=== PATIENT | female | born 1970 | race Caucasian/White ===

== ENCOUNTER 2018-04-16 10:52 | Observation (INO) | payer BC ==
--- NOTE | 2018-04-14 15:07 | Diagnostic Imaging Report ---
EXAMINATION: PA and lateral views of the chest. COMPARISON: None CLINICAL HISTORY: Preoperative evaluation for hysterectomy DISCUSSION: Lines/tubes: None. Lungs: The lungs are well inflated and clear. No pneumonia or pulmonary edema. Pleura: No pleural effusion or pneumothorax. Heart and mediastinum: The cardiomediastinal silhouette is normal. Bones and soft tissues: No acute bony abnormalities. IMPRESSION: No acute cardiopulmonary abnormalities. Signed by: Dr. Bj Powell M.D. on 04/14/2018 3:04 PM
[2018-04-14 15:26] LABS: BASOPHILS % 0.3 % (0.0-1.0); HEMOGLOBIN 11.5 g/dL (12.0-16.0); LYMPHOCYTES # (AUTO) 0.7 (1.0-3.2); LYMPHOCYTES % 7.9 % (18.0-39.1); MEAN CORPUSCULAR HEMOGLOBIN 26.2 pg (28-32); MEAN CORPUSCULAR HGB CONC 31.1 g/dL (31-35); MEAN CORPUSCULAR VOLUME 84.3 fL (81-99); MONOCYTES # (AUTO) 0.1 (0.2-0.8); MONOCYTES % 1.5 % (4.4-11.3); NEUTROPHILS # (AUTO) 8.5 (2.1-6.9); PLATELET COUNT 329 x10e3/uL (140-360); RED BLOOD COUNT 4.39 x10e6/uL (3.6-5.1); RED CELL DISTRIBUTION WIDTH 21.8 % (11.7-14.4)
[2018-04-14 15:28] LABS: BILIRUBIN,URINE NEGATIVE (NEGATIVE); CLARITY,URINE SL CLOUDY (CLEAR); COLOR,URINE YELLOW (YELLOW); KETONES,URINE NEGATIVE (NEGATIVE); LEUKOCYTE ESTERASE ,URINE NEGATIVE (NEGATIVE); NITRITE,URINE NEGATIVE (NEGATIVE); PROTEIN,URINE DIPSTICK NEGATIVE (NEGATIVE); URINE UROBILINOGEN 0.2 mg/dL (0.2 - 1)
[2018-04-14 15:46] LABS: ALANINE AMINOTRANSFERASE 23 IU/L (0-55); ALBUMIN 3.5 g/dL (3.5-5.0); ALBUMIN/GLOBULIN RATIO 1.2 (0.8-2.0); ALKALINE PHOSPHATASE 47 IU/L (40-150); ANION GAP 15.5 mmol/L (8-16); BLOOD UREA NITROGEN 15 mg/dL (7-26); BUN/CREATININE RATIO 21 (6-25); CALCIUM 9.4 mg/dL (8.4-10.2); CARBON DIOXIDE 21 mmol/L (22-29); CHLORIDE 104 mmol/L (98-107); CREATININE, SERUM 0.71 mg/dL (0.57-1.11); EST GLOMERULAR FILTRATION RATE > 60 ML/MIN (60-); GLUCOSE 109 mg/dL (74-118); POTASSIUM 4.5 mmol/L (3.5-5.1); SODIUM 136 mmol/L (136-145)
[~2018-04-16] VITALS: Ht 165.1 cm; Wt 79.8 kg
[~2018-04-16 10:52] MED LIST: ATENOLOL50 MG; FOLIC ACID1 MG PO; GABAPENTIN400 MG PO; HUMIRA40 MG/0.1; LASIX40 MG PO; LEFLUNOMIDE20 MG; MOBIC15 MG; MORPHINE ER PO; NORCO 10-325 T1 EACH; OMEPRAZOLE40 MG; PREDNISONE10 MG PO; VITAMIN D1000 UNI1 PO
--- OUTSIDE RECORDS SUMMARY | 2018-04-16 10:54 | XMS REPORT | Clinical Summary ---
Author Author [facility] Address Unknown Phone Unavailable Care Team Providers Care Hand Candy Molder Name Role Phone Saulo Vazquez MD PCP Allergies No Known Allergies Medications End Date Status Medication Sig Dispensed Refills Start Date Active zolpidem (AMBIEN) 10 mg Take 10 mg by 0 tablet mouth. 8 Active rosuvastatin (CRESTOR) 5 Take 5 mg by 0 MG tablet mouth daily. 8 Active predniSONE (DELTASONE) 10 Take 10 mg by 0 08/19/ mg tablet mouth 3 8 (three) times a day as needed. Active omeprazole (PriLOSEC) 40 Take 30 mg by 0 MG capsule mouth daily. 8 Active meloxicam (MOBIC) 15 mg Take 15 mg by 0 tablet mouth daily. 8 Active leflunomide (ARAVA) 20 MG Take 20 mg by 0 tablet mouth daily. 8 Active HYDROcodone-acetaminophen Take 1 tablet 0 (NORCO) 10-325 mg per by mouth 2 8 tablet (two) times a day as needed. Active hydroCHLOROthiazide Take 25 mg by 0 (HYDRODIURIL) 25 MG mouth daily. 8 tablet Active gabapentin (NEURONTIN) Take 400 mg 0 400 mg capsule by mouth 8 daily. Active folic acid (FOLVITE) 1 MG Take 1 mg by 0 tablet mouth daily. 8 Active VITAMIN D2 50,000 unit Take 1 0 capsule capsule by 8 mouth every 7 days. Active atenolol (TENORMIN) 25 MG Take 25 mg by 0 tablet mouth 3 8 (three) times a day as needed. Active atenolol (TENORMIN) 50 MG Take 50 mg by 0 tablet mouth daily. 8 Active HUMIRA PEN 40 mg/0.8 mL Inject 1 Dose 0 pen injector kit into the 8 injection pen kit shoulder, thigh, or buttocks take as directed. Every ten days 10/14/2017 Discontinued metaxalone (SKELAXIN) 800 Take 800 mg 0 MG tablet by mouth 8 daily as needed. Active Problems Problem Noted Date Back pain at L4-L5 level 10/13/2017 Encounters Care Team Description Date Type Specialty Michael Schwartz MD 10/13/2017 Anesthesia General Surgery Event Fabiola Tran MD REMOVAL OF SPINAL CORD STIMULATOR GENERATOR 10/13/2017 Surgery General Surgery Fabiola Tran MD Back pain at L4-L5 level (Primary Dx) 10/13/2017 Hospital General Surgery - Encounter 10/14/2017 Fabiola Tran MD Preop testing (Primary Dx) 10/09/2017 Pre-Admit Pre-Admission Testing Testing Appointment Fabiola Tran MD Preop testing (Primary Dx) 09/29/2017 Pre-Admit Pre-Admission Testing Testing Appointment Fabiola Tran MD 09/29/2017 Hospital Radiology Encounter Fabiola Tran MD 09/29/2017 Hospital Radiology Encounter Fabiola Tran MD 09/29/2017 Hospital Radiology Encounter after 04/15/2017 Family History Medical History Relation Name Comments Cerebral palsy Daughter Seizures Daughter Diabetes Mother Heart disease Mother Relation Name Status Comments Daughter Alive Mother Social History Date Tobacco Use Types Packs/Day Years Used Quit: 08/29/1993 Former Smoker Cigarettes 0.25 4 Smokeless Tobacco: Never Used Alcohol Use Drinks/Week oz/Week Comments Yes less than one per week Sex Assigned at Date Recorded Not on file Industry Job Start Date Occupation Not on file Not on file Not on file Travel End Travel History Travel Start No recent travel history available. Last Filed Vital Signs Time Taken Vital Sign Reading 10/14/2017 5:37 PM CDT Blood Pressure 108/58 10/14/2017 5:37 PM CDT Pulse 68 10/14/2017 5:37 PM CDT Temperature 36.7 C (98 F) 10/14/2017 5:37 PM CDT Respiratory Rate 18 10/14/2017 5:37 PM CDT Oxygen Saturation 94% - Inhaled Oxygen - Concentration 10/13/2017 6:15 AM CDT Weight 80.7 kg (177 lb 14.4 oz) 10/13/2017 6:15 AM CDT Height 165.1 cm (5' 5") 10/13/2017 6:15 AM CDT Body Mass Index 29.6 Plan of Treatment Health Maintenance Due Date Last Done Comments CERVICAL CANCER SCREENING 1992 INFLUENZA VACCINE 09/30/2017 Procedures Comments Procedure Name Priority Date/Time Associated Diagnosis XR LUMBAR SPINE 1 VW Routine 10/13/2017 9:45 AM CDT OR [place] > 1 HOUR Routine 10/13/2017 9:05 AM CDT SURGICAL PATHOLOGY Routine 10/13/2017 REQUEST 9:00 AM CDT AL AN ELECTIVE Routine 10/13/2017 ENDOTRACHEAL AIRWAY 8:12 AM CDT Procedure Note - Ameya Nieves - 10/13/2017 8:12 AM CDT Airway Date/Time: 10/13/2017 7:38 AM Performed by: AMEYA NIEVES Authorized by: MICHAEL SCHWARTZ Location: OR Urgency: Elective Difficult Airway: No Anesthesio logist: MICHAEL SCHWARTZ Resident/C RNA/AA: AMEYA NIEVES Performed by: resident/C RNA/AA Preoxygena nereida with 100% O2: Yes Mask Ventilatio n: Easy mask Final Airway Type: Endotrache al airway Final Endotrache al Airway: ETT Cuffed: Yes Technique Used: Direct laryngosco py Devices/Me thods Used in Placement: Intubatin g stylet Insertion Site: Oral Blade Type: Laryngosco pe Blade/Vide olaryngosc ope Blade Size: 2 ETT Size (mm): 7.0 Cuff at minimum occlusion pressure: Yes Measured from: Teeth ETT to Teeth (cm): 19 Placement Verified by: CO2 detection and direct visualizat ion Laryngosco pic view: Grade I - full view of glottis Rapid Sequence Induction (RSI): No Modified RSI: No Number of Attempts at Approach: 1 On scissoring mouth open, upper and lower dentures came off (patient did not admit to having previously ), atraumatic intubation INSERTION, PERIPHERAL 10/13/2017 STATUS POST LUMBAR FUSION NERVE STIMULATOR, 7:15 AM CDT PERCUTANEOUS, FOR TRIAL Special Needs C-ARM, LAMINECTOM Y TRAY HCG QUALITATIVE, URINE STAT 10/13/2017 SCREEN 6:10 AM CDT ZZESTIMATED GFR Routine 10/09/2017 7:37 AM CDT BASIC METABOLIC PANEL Routine 10/09/2017 Preop testing 7:37 AM CDT TYPE AND SCREEN Routine 10/09/2017 Preop testing 7:37 AM CDT XR THORACIC SPINE 2 VW Routine 09/29/2017 Preop testing 2:30 PM CDT XR LUMBAR SPINE 2 OR 3 VW Routine 09/29/2017 Preop testing 2:25 PM CDT XR CHEST 2 VW Routine 09/29/2017 Preop testing 2:25 PM CDT PROTHROMBIN TIME WITH INR Routine 09/29/2017 Preop testing 1:15 PM CDT PARTIAL THROMBOPLASTIN Routine 09/29/2017 Preop testing TIME (PTT) 1:15 PM CDT HC COMPLETE BLD COUNT Routine 09/29/2017 Preop testing W/AUTO DIFF 1:15 PM CDT ECG 12-LEAD Routine 09/29/2017 Preop testing 1:13 PM CDT URINALYSIS, AUTOMATED Routine 09/29/2017 Preop testing WITH MICROSCOPY 11:25 AM CDT after 04/15/2017 Results * XR Lumbar Spine 1 Vw (10/13/2017 9:45 AM CDT) Narrative Performed At EXAMINATION: XR LUMBAR SPINE 1 VW [facility] CLINICAL HISTORY: Spinal cord simulator removal COMPARISON:Chest, thoracic, lumbar radiographs obtained on 09/29/2017 IMPRESSION: Interval removal of a spinal cord stimulator leads without retained lead or foreign body identified. Cholecystectomy clips. [id number] Procedure Note Hm Interface, Radiology Results Incoming - 10/13/2017 11:39 AM CDT EXAMINATION: XR LUMBAR SPINE 1 VW CLINICAL HISTORY: Spinal cord simulator removal COMPARISON: Chest, thoracic, lumbar radiographs obtained on 09/29/2017 IMPRESSION: Interval removal of a spinal cord stimulator leads without retained lead or foreign body identified. Cholecystectomy clips. [id number] Performing Organization Address [facility] Phone Number [facility] [address] [place] [address] * OR [place] > I Hour (10/13/2017 9:05 AM CDT) Narrative Performed At EXAMINATION:OR FL 1 HOUR HM [facility] C-arm fluoroscopy was requested in OR.FLUORO TIME 0:41 IMPRESSION: Separate operative report will be issued by the physician performing the procedure. [id number] Procedure Note Hm Interface, Radiology Results Incoming - 10/13/2017 10:10 AM CDT EXAMINATION: OR FL 1 HOUR C-arm fluoroscopy was requested in OR. FLUORO TIME 0:41 IMPRESSION: Separate operative report will be issued by the physician performing the procedure. [id number] Performing Organization Address [facility] [place] Phone Number [facility] [address] [place] [address] * Surgical pathology request (10/13/2017 9:00 AM CDT) [facility] DEPARTMENT OF PATHOLOGY AND GENOMIC MEDICINE Surgical pathology report See link below for PDF Lab [facility] DEPARTMENT OF Report PATHOLOGY AND GENOMIC MEDICINE Result status This is Final Report to [facility] DEPARTMENT OF [id number] PATHOLOGY AND GENOMIC MEDICINE Performing Organization Address [facility] [place] Phone Number [address] [place] [address] PATHOLOGY AND GENOMIC MEDICINE * hCG qualitative, urine screen (10/13/2017 6:10 AM CDT) hCG qualitative, urine Negative Negative [facility] DEPARTMENT OF Comment: PATHOLOGY AND The manufacturers stated GENOMIC MEDICINE sensitivity of HcG test for serum is >/=10 mIU/ml and urine is >/=20mIU/ml. LOT # [id number] EXP : 03/2019 Specimen Urine Performing Organization Address [facility] [place] Phone Number [address] [place] [address] PATHOLOGY AND GENOMIC MEDICINE * Estimated GFR (10/09/2017 7:37 AM CDT) GFR Non Af Amer 77 mL/min/1.[address] [facility] DEPARTMENT OF PATHOLOGY AND GENOMIC MEDICINE GFR Af Amer >90 mL/min/1.[address] [facility] DEPARTMENT OF Comment: PATHOLOGY AND Chronic kidney disease: <60 GENOMIC MEDICINE mL/min/1.73m2 Kidney failure: <15 mL/min/1.73m2 The estimated GFR is calculated from the IDMS-traceable Modification of Diet in Renal Disease Equation. The accuracy of the calculation is poor when the creatinine is normal. Calculated values >90 mL/min/1.73m2 are not reported. This equation has not been validated in children (<18 years), women, the elderly (>70 years), or ethnic groups other than Caucasians and Americans. Specimen Plasma specimen Performing Organization Address [facility] Phone Number [address] [place] [address] [facility] * Type and screen (10/09/2017 7:37 AM CDT) ABO grouping O [facility] DEPARTMENT OF PATHOLOGY AND GENOMIC MEDICINE Rh type POS [facility] DEPARTMENT PATHOLOGY AND GENOMIC MEDICINE Antibody screen NEG [facility] DEPARTMENT OF PATHOLOGY AND GENOMIC [facility] Specimen Blood Performing Organization Address [facility] Phone Number [address] [place] [address] [facility] * Basic metabolic panel (10/09/2017 7:37 AM CDT) Sodium 139 135 - 148 mEq/L [facility] DEPARTMENT OF PATHOLOGY AND GENOMIC MEDICINE Potassium 3.5 3.5 - 5.0 mEq/L [facility] DEPARTMENT OF PATHOLOGY AND GENOMIC MEDICINE Chloride 98 98 - 112 mEq/L [facility] DEPARTMENT OF PATHOLOGY AND GENOMIC MEDICINE CO2 31 24 - 31 mEq/L [facility] DEPARTMENT OF PATHOLOGY AND GENOMIC MEDICINE Anion gap 10@ANIO 7 - 15 mEq/L [facility] DEPARTMENT OF PATHOLOGY AND GENOMIC MEDICINE BUN 15 6 - 20 mg/dL [facility] DEPARTMENT OF PATHOLOGY AND GENOMIC MEDICINE Creatinine 0.8 0.5 - 0.9 mg/dL [facility] DEPARTMENT OF PATHOLOGY AND GENOMIC MEDICINE Glucose 87 65 - 99 mg/dL [facility] DEPARTMENT OF PATHOLOGY AND GENOMIC MEDICINE Calcium 9.5 8.3 - 10.2 mg/dL [facility] DEPARTMENT OF PATHOLOGY AND [employer] MEDICINE Specimen Plasma specimen Performing Organization Address [facility] Phone Number [address] [place] [address] PATHOLOGY AND GENOMIC MEDICINE * XR Thoracic Spine 2 Vw (09/29/2017 2:30 PM CDT) Narrative Performed At EXAMINATION:XR THORACIC SPINE 2 VW [facility] CLINICAL HISTORY:Z01.818 Encounter for other preprocedural examination, T-spine fusionfollow up, preop- removal of spinal cord stimulator COMPARISON:None. FINDINGS: The bones are osteopenic. There appears to be wedging at T12-L1. The intraspinal stimulator appears to enter the canal between T11 and T12 dorsally as best can be determined by this technique. IMPRESSION: No additional findings of significance are identified. IMPRESSION: 1. Intraspinal stimulator as noted. 2. Diffuse osteopenia [id number] Procedure Note Interface, Radiology Results Incoming - 09/29/2017 6:17 PM CDT EXAMINATION: XR THORACIC SPINE 2 VW CLINICAL HISTORY: Z01.818 Encounter for other preprocedural examination, T- spine fusion follow up, preop- removal of spinal cord stimulator COMPARISON: None. FINDINGS: The bones are osteopenic. There appears to be wedging at T12-L1. The intraspinal stimulator appears to enter the canal between T11 and T12 dorsally as best can be determined by this technique. IMPRESSION: No additional findings of significance are identified. IMPRESSION: 1. Intraspinal stimulator as noted. 2. Diffuse osteopenia [id number] Performing Organization Address City/State/Zipcode Phone Number [facility] [address] [place] [address] * XR Lumbar Spine 2 Or 3 Vw (09/29/2017 2:25 PM CDT) Narrative Performed At EXAMINATION:XR LUMBAR SPINE 2 OR 3 VW [facility] CLINICAL HISTORY:Z01.818 Encounter for other preprocedural examination, L S-spine fusionfollow up, preop- removal of spinal cord stimulator generator COMPARISON:None. FINDINGS: The bones are well-mineralized and appear intact. An intraspinal stimulator is noted entering the canal at the T12 T11 level as best can be estimated. An additional electrode overlies the upper sacrum. Vertebral disc spaces are preserved. Facet hypertrophy at the lower 3 levels is present. IMPRESSION: Spinal stimulator as noted. [id number] Procedure Note Interface, Radiology Results Incoming - 09/29/2017 4:03 PM CDT EXAMINATION: XR LUMBAR SPINE 2 OR 3 VW CLINICAL HISTORY: Z01.818 Encounter for other preprocedural examination, L S- spine fusion follow up, preop- removal of spinal cord stimulator generator COMPARISON: None. FINDINGS: The bones are well-mineralized and appear intact. An intraspinal stimulator is noted entering the canal at the T12 T11 level as best can be estimated. An additional electrode overlies the upper sacrum. Vertebral disc spaces are preserved. Facet hypertrophy at the lower 3 levels is present. IMPRESSION: Spinal stimulator as noted. [id number] Performing Organization Address [facility] [place] Phone Number [facility] [address] [place] [address] * XR Chest 2 Vw (09/29/2017 2:25 PM CDT) Narrative Performed At EXAMINATION:[facility]:Z01.818 Encounter for other preprocedural examination, preop COMPARISON:February 19, 2007 FINDINGS: The heart size appears normal. The mediastinum is unremarkable. A intraspinal nerve stimulator is noted, its projects within the lower thoracic spinal canal. IMPRESSION: No acute cardiopulmonary abnormality is identified. [id number] Procedure Note Hm Interface, Radiology Results Incoming - 09/29/2017 3:55 PM CDT EXAMINATION: XR CHEST 2 VW CLINICAL HISTORY: Z01.818 Encounter for other preprocedural examination, preop COMPARISON: February 19, 2007 FINDINGS: The heart size appears normal. The mediastinum is unremarkable. A intraspinal nerve stimulator is noted, its projects within the lower thoracic spinal canal. IMPRESSION: No acute cardiopulmonary abnormality is identified. [id number] Performing Organization Address [facility] [place] Phone Number [facility] [address] [place] [address] * Partial thromboplastin time, activated (09/29/2017 1:15 PM CDT) PTT 33.8 23.0 - 36.[address] [facility] DEPARTMENT OF Comment: PATHOLOGY AND PTT therapeutic range for [employer] MEDICINE unfractionated heparin is 61.0-112.0 seconds which corresponds to Anti-Xa 0.3-0.7 U/ml. Specimen Blood Performing Organization Address [facility] Phone Number [facility] DEPARTMENT OF [address] [place] [address] [place] [address] PATHOLOGY AND GENOMIC MEDICINE * Prothrombin time with INR (09/29/2017 1:15 PM CDT) Prothrombin time 12.5 12.0 - 15.[address] [facility] DEPARTMENT OF PATHOLOGY AND GENOMIC MEDICINE INR 0.[address] [facility] DEPARTMENT OF Comment: PATHOLOGY AND The International Normalized GENOMIC MEDICINE Ratio (INR) is a therapeutic monitoring tool for patients who are stable on oral anticoagulant therapy. An INR of 2.0-3.0 is suggested for deep vein thrombosis/pulmonary embolism. Specimen Blood Performing Organization Address City/State/Zipcode Phone Number [facility] [place] [address] [place] [address] PATHOLOGY AND GENOMIC MEDICINE * CBC with platelet and differential (09/29/2017 1:15 PM CDT) WBC 5.88 4.50 - 11.00 k/uL [facility] DEPARTMENT OF PATHOLOGY AND GENOMIC MEDICINE RBC 4.24 4.20 - 5.50 m/uL [facility] DEPARTMENT OF PATHOLOGY AND GENOMIC MEDICINE HGB 11.7 (L) 12.0 - 16.0 g/dL [facility] DEPARTMENT OF PATHOLOGY AND GENOMIC MEDICINE HCT 37.6 37.0 - 47.0 % [facility] DEPARTMENT OF PATHOLOGY AND GENOMIC MEDICINE MCV 88.7 82.0 - 100.[address] [facility] DEPARTMENT OF PATHOLOGY AND GENOMIC MEDICINE MCH 27.6 27.0 - 34.[address] [facility] DEPARTMENT OF PATHOLOGY AND GENOMIC MEDICINE MCHC 31.1 31.0 - 37.0 g/dL [facility] DEPARTMENT OF PATHOLOGY AND GENOMIC MEDICINE RDW - SD 49.1 37.0 - 55.[address] [facility] DEPARTMENT OF PATHOLOGY AND GENOMIC MEDICINE MPV 10.5 8.8 - 13.[address] [facility] DEPARTMENT OF PATHOLOGY AND GENOMIC MEDICINE Platelet count 339 150 - 400 k/uL [facility] DEPARTMENT OF PATHOLOGY AND GENOMIC MEDICINE Nucleated RBC 0.00 /[address] [facility] DEPARTMENT OF PATHOLOGY AND GENOMIC MEDICINE Neutrophils 40.3 39.0 - 69.0 % [facility] DEPARTMENT OF PATHOLOGY AND GENOMIC MEDICINE Lymphocytes 39.3 25.0 - 45.0 % [facility] DEPARTMENT OF PATHOLOGY AND GENOMIC MEDICINE Monocytes 15.8 (H) 0.0 - 10.0 % [facility] DEPARTMENT OF PATHOLOGY AND GENOMIC MEDICINE Eosinophils 3.4 0.0 - 5.0 % [facility] DEPARTMENT OF PATHOLOGY AND GENOMIC MEDICINE Basophils 1.0 0.0 - 1.0 % [facility] DEPARTMENT OF PATHOLOGY AND GENOMIC MEDICINE Specimen Blood Performing Organization Address City/[facility]/Zipcode Phone Number [place] [phone] [place] [address] PATHOLOGY AND GENOMIC MEDICINE * ECG 12 lead (09/29/2017 1:13 PM CDT) Ventricular rate 61 [facility] Atrial rate 61 [facility] AL interval 122 [facility] QRSD interval 70 [facility] QT interval 384 [facility] QTC interval 386 [facility] P axis 1 66 [facility] QRS axis 1 58 [facility] T wave axis 43 [facility] EKG impression Normal sinus rhythm-Normal [facility] MUSE ECG-In automated comparison with ECG of 04-APR-2011 21:33,-No significant change was found- Performing Organization Address City/[facility] Phone Number [facility] [address] [place] [address] * Urinalysis, automated with microscopy (09/29/2017 11:25 AM CDT) Color, UA Straw [facility] DEPARTMENT OF PATHOLOGY AND GENOMIC MEDICINE Appearance, UA Clear [facility] DEPARTMENT OF PATHOLOGY AND GENOMIC MEDICINE Specific gravity, UA 1.004 1.001 - 1.[address] [facility] DEPARTMENT OF PATHOLOGY AND GENOMIC MEDICINE pH, UA 5.0 5.0 - 8.[address] [facility] DEPARTMENT OF PATHOLOGY AND GENOMIC MEDICINE Protein, UA Negative Negative [facility] DEPARTMENT OF PATHOLOGY AND GENOMIC MEDICINE Glucose, UA Negative Negative [facility] DEPARTMENT OF PATHOLOGY AND GENOMIC MEDICINE Ketones, UA Negative Negative [facility] DEPARTMENT OF PATHOLOGY AND GENOMIC MEDICINE Bilirubin, UA Negative Negative [facility] DEPARTMENT OF PATHOLOGY AND GENOMIC MEDICINE Blood, UA Negative Negative [facility] DEPARTMENT OF PATHOLOGY AND GENOMIC MEDICINE Nitrite, UA Negative Negative [facility] DEPARTMENT OF PATHOLOGY AND GENOMIC MEDICINE Urobilinogen, UA Negative <2.[address] [facility] DEPARTMENT OF PATHOLOGY AND GENOMIC MEDICINE Leukocyte esterase, UA Negative Negative [facility] DEPARTMENT OF PATHOLOGY AND GENOMIC MEDICINE Epithelial cells, UA Many /HPF [facility] DEPARTMENT OF PATHOLOGY AND GENOMIC MEDICINE Round epithelial cells, Few 0 - 1 /HPF [facility] DEPARTMENT OF PATHOLOGY AND GENOMIC MEDICINE WBC, UA 0-5 0 - 4 /HPF [facility] DEPARTMENT OF PATHOLOGY AND GENOMIC MEDICINE RBC, UA 0-5 0 - 5 /HPF [facility] DEPARTMENT OF PATHOLOGY AND GENOMIC MEDICINE Bacteria, UA Few None seen [facility] DEPARTMENT OF PATHOLOGY AND GENOMIC MEDICINE Yeast, UA None seen [facility] DEPARTMENT OF PATHOLOGY AND GENOMIC MEDICINE Yeast with pseudohyphae, None seen [facility] DEPARTMENT OF UA PATHOLOGY AND GENOMIC MEDICINE Specimen Urine Performing Organization Address City/State/Zipcode Phone Number [facility] DEPARTMENT [address] [place] [address] PATHOLOGY AND GENOMIC MEDICINE after 04/15/2017 Insurance Payer Benefit Subscriber ID Type Phone Address Plan / Group [facility] xxxxxxxxxxx PPO [employer] Advance Directives Patient has advance care planning documents on file. For more information, jessica henley contact: Lance Morgan [address] [place] [address]
--- OUTSIDE RECORDS SUMMARY | 2018-04-16 10:55 | XMS REPORT ---
Author Author [facility] Address Unknown Phone Unavailable Care Team Providers Care Cryptographic Machine Operator Name Role Phone JOANA FOWLER Unavailable Unavailable Problems This patient has no known problems. Allergies, Adverse Reactions, Alerts This patient has no known allergies or adverse reactions. Medications This patient has no known medications. Results Test Description Test Time Test Comments Text Results Atomic Results Result Comments CHEST 2 VIEWS 2018-04-14 15:02:00 [place] [address] Patient Name: HAILEE BURT MR #: [id number] : 1970 Age/Sex: 48/F Req #: [id number] Adm Physician: Ordered by: JOANA FOWLER MD Report #: [id number] Location: OR Room/Bed: Procedure: [id number] DX/CHEST 2 VIEWS Exam Date: 04/14/18 Exam Time: 1440 REPORT STATUS: Signed EXAMINATION: PA and lateral views of the chest. COMPARISON: None CLINICAL HISTORY: Preoperative evaluation for hysterectomy DISCUSSION: Lines/tubes: None. Lungs: The lungs are well inflated and clear. No pneumonia or pulmonary edema. Pleura: No pleural effusion or pneumothorax. Heart and mediastinum: The cardiomediastinal silhouette is normal. Bones and soft tissues: No acute bony abnormalities. IMPRESSION: No acute cardiopulmonary abnormalities. Signed by: Dr. Isaiah Mays M.D. on 04/14/2018 3:04 PM Dictated By: ISAIAH MAYS MD [id number] Transcribed By: CHASIDY on 04/14/18 1504 COPY TO: JOANA FOWLER MD
--- OUTSIDE RECORDS SUMMARY | 2018-04-16 10:55 | XMS REPORT ---
Author Author Michael Matthew Organization [employer] Address Unknown Phone Unavailable Care Team Providers Care Patient Placement Coordinator Name Role Phone Michael Matthew CP Unavailable Allergies No Known Allergies Problems Problem Type Condition Code Onset Dates Condition Status Assessment Wrist pain, right M25.531 Active Assessment Rheumatoid arthritis of multiple sites with negative rheumatoid factor M06.09 Active Assessment Wrist pain, left M25.532 Active Problem Rheumatoid arthritis of multiple sites with negative rheumatoid factor M06.09 Active Problem Polyarthralgia M25.50 Active Problem Vitamin D deficiency E55.9 Active Problem Polyarthritis, unspecified M13.0 Active Problem Coccyxdynia M53.3 Active Problem Raised antibody titer R76.0 Active Medications No Known Medications Results No Known Results Summary Purpose [employer] Submission
--- OUTSIDE RECORDS SUMMARY | 2018-04-16 10:55 | XMS REPORT ---
Author Michael Cruz Organization [employer] Address Unknown Phone Unavailable Care Team Providers Care Sole Tacker Name Role Phone Michael Matthew CP Unavailable Allergies No Known Allergies Problems Problem Type Condition Code Onset Dates Condition Status Problem Rheumatoid arthritis of multiple sites with negative rheumatoid factor M06.09 Active Problem Polyarthralgia M25.50 Active Problem Vitamin D deficiency E55.9 Active Problem Polyarthritis, unspecified M13.0 Active Problem Coccyxdynia M53.3 Active Problem Raised antibody titer R76.0 Active Medications No Known Medications Results No Known Results Summary Purpose [employer]ClinicalWorks Submission
--- OUTSIDE RECORDS SUMMARY | 2018-04-16 10:55 | XMS REPORT ---
Author Michael Cruz Organization [employer] Address Unknown Phone Unavailable Care Team Providers Care Tax Expert Name Role Phone Michael Matthew CP Unavailable [...]
--- OUTSIDE RECORDS SUMMARY | 2018-04-16 10:55 | XMS REPORT ---
Author Michael Cruz Organization [employer] Address Unknown Phone Unavailable Care Team Providers Care Printed Circuit Boards Beveler Name Role Phone Michael Matthew CP Unavailable [...]
--- OUTSIDE RECORDS SUMMARY | 2018-04-16 10:55 | XMS REPORT ---
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
--- OUTSIDE RECORDS SUMMARY | 2018-04-16 10:55 | XMS REPORT ---
Author Michael Cruz Organization [employer] Address Unknown Phone Unavailable Care Team Providers Care Design Cell Engineer Name Role Phone Michael Matthew CP Unavailable [...]
--- OUTSIDE RECORDS SUMMARY | 2018-04-16 10:55 | XMS REPORT ---
Author Michael Cruz Organization [employer] Address Unknown Phone Unavailable Care Team Providers Care Computer Science Intern Name Role Phone Michael Matthew CP Unavailable [...]
--- OUTSIDE RECORDS SUMMARY | 2018-04-16 10:55 | XMS REPORT ---
Author Michael Cruz [facility] [employer] Address Unknown Phone Unavailable Care Team Providers Care Homeworker Name Role Phone Michael Matthew CP Unavailable Allergies, Adverse Reactions, Alerts Substance Reaction Event Type N.K.D.A. 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 REFRIGERATE. Leflunomide [facility] 34542575387 20 MG Orally Once a day Active 1 tablet Mobic [facility] 20069343862 15 MG Once a day Active 1 tablet PredniSONE NDC 0 10 MG Orally PRN Active 3 tablets ProAir HFA [facility] 82019483562 108 (90 Base) MCG/ACT Inhalation PRN Active 2 puffs as needed Omeprazole [facility] 03141843923 40 Mg once a day Active 1 capsule Folic Acid [facility] 58020124637 1 MG Orally Once a day Active 1 tablet [place] [facility] 44978728003 7.5-325 MG Orally TID Active 1 tablet as needed Vitamin D (Ergocalciferol) [facility] 74746914235 74148 UNIT Orally Once a week Active 1 capsule Vital Signs Date/Time: Mar 23, 2017 BMI 28.27 Index Weight 175.2 lbs Height 66 in Temperature 98.2 F Cardiac Monitoring Heart Rate 88 /min Blood Pressure Diastolic 80 mm Hg Blood Pressure Systolic 120 mm Hg Results No Known Results Summary Purpose eClinicalWorks Submission
--- OUTSIDE RECORDS SUMMARY | 2018-04-16 10:55 | XMS REPORT | Continuity of Care Document ---
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 Condition 11/11/2013 [facility] OTHER CHRONIC POSTOPERATIVE PAIN Active 10/21/2013 Condition 11/11/2013 [facility] FAILED BACK SYNDROME Active 09/15/2013 Condition 11/11/2013 [facility] LUMBAR RADICULOPATHY Active 09/15/2013 Condition 11/11/2013 [facility] LOW BACK PAIN Active 09/15/2013 Condition 11/11/2013 [facility] Rheumatoid arthritis of multiple sites with negative rheumatoid factor Active Problem 03/18/2018 [facility] Matthew Polyarthralgia Active Problem 03/18/2018 Pancho Matthew Vitamin D deficiency Active Problem 03/18/2018 Pancho Matthew Polyarthritis, unspecified Active Problem 03/18/2018 Pancho Matthew Coccyxdynia Active Problem 03/18/2018 Pancho Matthew Raised antibody titer Active Problem 03/18/2018 Pancho Matthew Encounter for long-term use of other high-risk medications Active Diagnosis 02/27/2018 Pancho Matthew Wrist pain, left Active Diagnosis 01/02/2018 Pancho Matthew Wrist pain, right Active Diagnosis 01/02/2018 Pancho Matthew Medications Medication Details Route Status Patient Instructions Ordering Provider Order Date Source Humira Pen inject 40mg subcutaneously Subcutaneous Active 40 MG/0.8ML Subcutaneous q week Matthew 03/05/2018 Pancho Matthew Medrol (Harsha) as directed Orally Active 4 MG Orally Matthew 01/01/2018 Pancho Matthew Vitamin D (Ergocalciferol) 1 capsule Orally Active 04923 UNIT Orally Once a week Matthew 10/14/2017 Pancho Matthew Humira Pen 0.8 ml Subcutaneous Active 40 MG/0.8ML Subcutaneous Every other weeks Matthew 12/11/2016 Pancho Matthew NEURONTIN 400 MG CAPS tid Active 09/15/2013 [facility] DICLOFENAC SODIUM 75 MG TBEC bid Active 09/15/2013 [facility] CYCLOBENZAPRINE HCL 10 MG TABS tid Active 09/15/2013 [facility] OMEPRAZOLE 40 MG CPDR Active 09/15/2013 [facility] NUCYNTA ER 200 MG [id number] bid Active 09/15/2013 [facility] HYDROCODONE-ACETAMINOPHEN 7.5-325 MG TABS Active 09/15/2013 [facility] AMBIEN 10 MG TABS Active 09/15/2013 [facility] [place] 1 tablet as needed Orally Active 7.5-325 MG Orally TID [place] Pancho Matthew Gabapentin 1 capsule Orally Active 400 MG Orally Three times a day [place] Panch[facility] Matthew ProAir HFA 2 puffs as needed Inhalation Active 108 (90 Base) MCG/ACT Inhalation PRN [place] [facility] Matthew PredniSONE 3 tablets Orally Active 10 MG Orally PRN [place] [facility] Matthew Omeprazole 1 capsule NA Active 40 Mg once a day [place] [facility] Matthew Folic Acid 1 tablet Orally Active 1 MG Orally Once a day [place] [facility] Matthew Atenolol 1 tablet Orally Active 50 MG Orally twice a day [place] [facility] Matthew Leflunomide 1 tablet Orally Active 20 MG Orally Once a day [place] [facility] Matthew Humira Pen inject 40mg subcutaneously Subcutaneous Active 40 MG/0.8ML Subcutaneous q week [place] [facility] Matthew Mobic 1 tablet NA Active 15 MG Once a day [place] [facility] Matthew Omeprazole 1 capsule NA Active 40 Mg once a day [place] [facility] Matthew Folic Acid 1 tablet Orally Active 1 MG Orally Once a day [place] [facility] Matthew Dilaudid 1 tablet as needed Orally Active 2 MG Orally once a day [place] [facility] Matthew Morphine Sulfate 1 tablet NA Active 15 MG BID [place] [facility] Matthew Mobic 1 tablet NA Active 15 MG Once a day [place] [facility] Matthew Ergocalciferol 1 capsule Orally Active 23696 UNIT Orally once a week [place] P[facility] Matthew ProAir HFA 2 puffs as needed Inhalation Active 108 (90 Base) MCG/ACT Inhalation PRN [place] Panch[facility] Matthew Leflunomide 1 tablet Orally Active 20 MG Orally q am [place] Panch[facility] Matthew Gabapentin 1 capsule Orally Active 400 MG Orally Three times a day [place] P[facility] Matthew Vitamin D (Ergocalciferol) 1 capsule Orally Active 13483 UNIT Orally Once a week [place] Pancho Matthew Allergies, Adverse Reactions, Alerts Substance Category Reaction Severity Reaction type Status Date Reported Comments Source N.K.D.A. Adverse Reaction Info Not Available Adverse Reaction Active 06/16/2017 P[facility] Dwyerer Immunizations Immunization Date Given Site Status Last Updated Comments Source Results Order Name Results Value Reference Range Date Interpretation Comments Source Vital Signs Vital Sign Value Date Comments Source Weight 175 06/16/2017 Pancho Matthew Height 66 06/16/2017 Panch[facility] Matthew Temperature Oral (F) 97.0 F 06/16/2017 Pancho Matthew Heart Rate 84 06/16/2017 Pancho Matthew Diastolic (mm Hg) 62 06/16/2017 Pancho Matthew Systolic (mm Hg) 102 06/16/2017 Panch[facility] Matthew Weight 175.2 03/23/2017 Panch[facility] Matthew Height 66 03/23/2017 Pancho Matthew Temperature Oral (F) 98.2 F 03/23/2017 Pancho Matthew Heart Rate 88 03/23/2017 Pancho Matthew Diastolic (mm Hg) 80 03/23/2017 Pancho Matthew Systolic (mm Hg) 120 03/23/2017 [facility]anch[facility] Matthew Weight 165.8 11/27/2016 Panch[facility] Matthew Height 65.5 11/27/2016 Pancho Matthew Temperature Oral (F) 98.0 F 11/27/2016 [facility]anch[facility] Matthew Heart Rate 74 11/27/2016 Panch[facility] Matthew Diastolic (mm Hg) 74 11/27/2016 P[facility] Matthew Systolic (mm Hg) 124 11/27/2016 [facility] Matthew Weight 181.2 11/10/2013 [facility] Height 65 11/10/2013 [facility] Temperature Oral (F) 98.1 F 11/10/2013 [facility] Heart Rate 94 11/10/2013 [facility] Systolic (mm Hg) 125 11/10/2013 [facility] Diastolic (mm Hg) 80 11/10/2013 [facility] Weight 181.2 09/15/2013 [facility] Height 65 09/15/2013 [facility] Temperature Oral (F) 97.9 F 09/15/2013 [facility] Heart Rate 94 09/15/2013 [facility] Systolic (mm Hg) 121 09/15/2013 [facility] Diastolic (mm Hg) 77 09/15/2013 [facility] Encounters Location Location Details Encounter Type Encounter Number Reason For Visit Attending Provider ADM Date DC Date Status Source [facility] Office Visit [id number] Jose Lake MD 11/10/2013 11/10/[address] [facility] Lab Report [id number] Jose Lake MD 11/11/2013 11/11/2013 [facility] Procedures Procedure Code Date Perfomer Comments Source
--- OUTSIDE RECORDS SUMMARY | 2018-04-16 10:55 | XMS REPORT ---
Author Michael Cruz Organization [employer] Address Unknown Phone Unavailable Care Team Providers Care Railroad Dispatcher Name Role Phone Michael Matthew CP Unavailable [...]
--- OUTSIDE RECORDS SUMMARY | 2018-04-16 10:55 | XMS REPORT ---
Author Michael Cruz Organization [employer] Address Unknown Phone Unavailable Care Team Providers Care Pulmonary Care Nurse Name Role Phone Michael Matthew CP Unavailable [...]
--- OUTSIDE RECORDS SUMMARY | 2018-04-16 10:55 | XMS REPORT ---
Author Michael Cruz Organization [employer] Address Unknown Phone Unavailable Care Team Providers Care Flumer Name Role Phone Michael Matthew CP Unavailable [...]
--- OUTSIDE RECORDS SUMMARY | 2018-04-16 10:55 | XMS REPORT | Continuity of Care Document ---
Author Author [facility] Address Unknown Phone Unavailable Care Team Providers Care Top Precipitator Operator Name Role Phone Aleksandra HARRINGTON, Jose MORENO Unavailable Insurance Providers Payer name Policy type / Coverage type Policy ID Covered libertarian ID Policy Warren GEHA (PPO) [facility] GEHA (PPO) GEHA (PPO) GEHA (PPO) GEHA (PPO) GEHA (PPO) GEHA (PPO) GEHA (PPO) GEHA (PPO) Encounters Encounter Performer Location Date Lab Report Jose Lake MD [facility] [place] Nov 11, 2013 Problems Problem Effective Dates Problem Status FAILED BACK SYNDROME Sep 15, 2013 Active LUMBAR RADICULOPATHY Sep 15, 2013 Active LOW BACK PAIN Sep 15, 2013 Active MECHANICAL COMPLICATION OF NERVOUS SYSTEM DEVICE, IMPLANT, AND GRAFT Oct 21, 2013 Active OTHER CHRONIC POSTOPERATIVE PAIN Oct 21, 2013 Active Procedures Date Description Comments Sep 15, 2013 smoking status former smoker Medications Medication Instructions Start Date Status NEURONTIN 400 MG CAPS tid Sep 15, 2013 Active DICLOFENAC SODIUM 75 MG TBEC bid Sep 15, 2013 Active CYCLOBENZAPRINE HCL 10 MG TABS tid Sep 15, 2013 Active OMEPRAZOLE 40 MG CPDR Sep 15, 2013 Active NUCYNTA ER 200 MG [id number] bid Sep 15, 2013 Active HYDROCODONE-ACETAMINOPHEN 7.5-325 MG TABS Sep 15, 2013 Active AMBIEN 10 MG TABS Sep 15, 2013 Active Vital Signs Date Description Test Result Sep 15, 2013 weight E&M - 3141-9 WEIGHT 181.2 lb Sep 15, 2013 height E&M - 8302-2 HEIGHT 65 in Sep 15, 2013 temperature E&M TEMPERATURE 97.9 deg f Sep 15, 2013 pulse rate E&M - 8867-4 PULSE RATE 94 /min Sep 15, 2013 blood pressure, systolic - 8480-6 BP SYSTOLIC 121 mm Hg Sep 15, 2013 blood pressure, diastolic - 8462-4 BP DIASTOLIC 77 mm Hg Nov 10, 2013 weight E&M - 3141-9 WEIGHT 181.2 lb Nov 10, 2013 height E&M - 8302-2 HEIGHT 65 in Nov 10, 2013 temperature E&M TEMPERATURE 98.1 deg f Nov 10, 2013 pulse rate E&M - 8867-4 PULSE RATE 94 /min Nov 10, 2013 blood pressure, systolic - 8480-6 BP SYSTOLIC 125 mm Hg Nov 10, 2013 blood pressure, diastolic - 8462-4 BP DIASTOLIC 80 mm Hg
--- OUTSIDE RECORDS SUMMARY | 2018-04-16 10:55 | XMS REPORT ---
Author Michael Cruz Organization [employer] Address Unknown Phone Unavailable Care Team Providers Care Controls Designer Name Role Phone Michael Matthew CP Unavailable [...]
--- OUTSIDE RECORDS SUMMARY | 2018-04-16 10:55 | XMS REPORT ---
Author Author Michael Matthew Organization [employer] Address Unknown Phone Unavailable Care Team Providers Care Mobile Service Rv Technician Name Role Phone Michael Matthew CP Unavailable Allergies No Known Allergies Problems Problem Type Condition Code Onset Dates Condition Status Assessment Wrist pain, left M25.532 Active Assessment Wrist pain, right M25.531 Active Problem Rheumatoid arthritis of multiple sites with negative rheumatoid factor M06.09 Active Problem Polyarthralgia M25.50 Active Problem Vitamin D deficiency E55.9 Active Problem Polyarthritis, unspecified M13.0 Active Problem 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
--- OUTSIDE RECORDS SUMMARY | 2018-04-16 10:55 | XMS REPORT ---
Author Michael Cruz Organization [employer] Address Unknown Phone Unavailable Care Team Providers Care Drum Sealer Name Role Phone Michael Matthew CP Unavailable [...]
--- OUTSIDE RECORDS SUMMARY | 2018-04-16 10:55 | XMS REPORT ---
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
--- OUTSIDE RECORDS SUMMARY | 2018-04-16 10:55 | XMS REPORT ---
Author Michael Cruz Organization [employer] Address Unknown Phone Unavailable Care Team Providers Care Soc Analyst Name Role Phone Michael Matthew CP Unavailable [...]
--- OUTSIDE RECORDS SUMMARY | 2018-04-16 10:55 | XMS REPORT ---
Author Author Michael Matthew Organization [employer] Address Unknown Phone Unavailable Care Team Providers Care Asbestos Surveyor Name Role Phone Michael Matthew CP Unavailable [...] Date End Date Status Dosage Humira Pen [facility] 68414328063 40 MG/0.8ML Subcutaneous q week Mar 05, 2018 Active inject 40mg subcutaneously Results No Known Results Summary Purpose eClinicalWorks Submission
--- OUTSIDE RECORDS SUMMARY | 2018-04-16 10:55 | XMS REPORT ---
Author Michael Cruz Organization [employer] Address Unknown Phone Unavailable Care Team Providers Care Dog Obedience Instructor Name Role Phone Michael Matthew CP Unavailable [...]
--- OUTSIDE RECORDS SUMMARY | 2018-04-16 10:55 | XMS REPORT ---
Author Michael Cruz Organization [employer] Address Unknown Phone Unavailable Care Team Providers Care Security Chief Museum Name Role Phone Michael Matthew CP Unavailable [...]
--- OUTSIDE RECORDS SUMMARY | 2018-04-16 10:55 | XMS REPORT ---
Author Author Michael Matthew Organization [employer] Address Unknown Phone Unavailable Care Team Providers Care Steam Engineer Name Role Phone Michael Matthew CP [...] Date End Date Status Dosage Humira Pen [facility] 31804406823 40 MG/0.8ML Subcutaneous q week Mar 05, 2018 Active inject 40mg subcutaneously Results No Known Results Summary Purpose eClinicalWorks Submission
--- OUTSIDE RECORDS SUMMARY | 2018-04-16 10:55 | XMS REPORT ---
Author Author Michael Matthew [facility] [employer] Address Unknown Phone Unavailable Care Team Providers Care Administrative Technician Name Role Phone Michael Matthew CP Unavailable Allergies, Adverse Reactions, Alerts Substance Reaction Event Type N.K.D.A. 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 Problem Raised antibody titer R76.0 Active Medications Medication Code System Code Instructions Start Date End Date Status Dosage Omeprazole [facility] [address]-93 40 Mg once a day Active 1 capsule Folic Acid [facility] [address]-09 1 MG Orally Once a day Active 1 tablet Dilaudid [facility] [address]-18 2 MG Orally once a day Active 1 tablet as needed Morphine Sulfate [facility] [address]-46 15 MG BID Active 1 tablet Mobic [facility] [address]-27 15 MG Once a day Active 1 tablet Ergocalciferol [facility] [address]-53 05767 UNIT Orally once a week Active 1 capsule ProAir HFA [facility] [address]-89 108 (90 Base) MCG/ACT Inhalation PRN Active 2 puffs as needed PredniSONE ND 0 10 MG Orally Once a day Active 3 tablets Leflunomide [facility] [address]-58 20 MG Orally q am Active 1 tablet Gabapentin [facility] [address]-60 400 MG Orally Three times a day Active 1 capsule Vital Signs Date/Time: Nov 27, 2016 BMI 27.17 Index Weight 165.8 lbs Height 65.5 in Temperature 98.0 F Cardiac Monitoring Heart Rate 74 /min Blood Pressure Diastolic 74 mm Hg Blood Pressure Systolic 124 mm Hg Results No Known Results Summary Purpose eClinicalWorks Submission
--- OUTSIDE RECORDS SUMMARY | 2018-04-16 10:55 | XMS REPORT | Continuity of Care Document ---
Author Author [facility] Organization [facility] Address Unknown Phone Unavailable Care Team Providers Care Tectonophysicist Name Role Phone Aleksandra HARRINGTON, Jose MORENO Unavailable Insurance Providers Payer name Policy type / Coverage type Policy ID Covered libertarian ID Policy Warren GEHA (PPO) [facility] (PPO) GEHA (PPO) GEHA (PPO) GEHA (PPO) GEHA (PPO) GEHA (PPO) GEHA (PPO) GEHA (PPO) Encounters Encounter Performer Location Date Office Visit Jose Lake MD [facility] Nov 10, 2013 Problems Problem Effective Dates Problem Status [...] 15, 2013 Active NUCYNTA ER 200 MG [id number] bid Sep 15, 2013 Active HYDROCODONE-ACETAMINOPHEN 7.5-325 [...]
--- OUTSIDE RECORDS SUMMARY | 2018-04-16 10:55 | XMS REPORT ---
Author Michael Cruz Organization [employer] Address Unknown Phone Unavailable Care Team Providers Care Geosciences Professor Name Role Phone Michael Matthew CP Unavailable [...]
--- OUTSIDE RECORDS SUMMARY | 2018-04-16 10:55 | XMS REPORT ---
Author Michael Cruz [facility] eClinicalWorks Address Unknown Phone Unavailable Care Team Providers Care Hr Associate Name Role Phone Michael Matthew CP Unavailable [...] Instructions Start Date End Date Status Dosage Ely [facility] [id number] 7.5-325 MG Orally TID Active 1 tablet as needed Gabapentin [facility] 58580582996 400 MG Orally Three times a day Active 1 capsule ProAir HFA [facility] 20463397576 108 (90 Base) MCG/ACT Inhalation PRN Active 2 puffs as needed PredniSONE NDC 0 10 MG Orally PRN Active 3 tablets Omeprazole [facility] 58338937347 40 Mg once a day Active 1 capsule Folic Acid [facility] 77680022165 1 MG Orally Once a day Active 1 tablet Atenolol [facility] 08404441912 50 MG Orally twice a day Active 1 tablet Leflunomide [facility] 26506306406 20 MG Orally Once a day Active 1 tablet Vitamin D (Ergocalciferol) [facility] 07489879402 22093 UNIT Orally Once a week Oct 14, 2017 Active 1 capsule Humira Pen [facility] 41967972798 40 MG/0.8ML Active INJECT ONE PEN (40 MG) SUBCUTANEOUSLY EVERY OTHER WEEK. REFRIGERATE. Mobic [facility] 24397532724 15 MG Once a day Active 1 tablet Vital Signs Date/Time: June 16, 2017 BMI 28.24 Index Weight 175 lbs Height 66 in Temperature 97.0 F Cardiac Monitoring Heart Rate 84 /min Blood Pressure Diastolic 62 mm Hg Blood Pressure Systolic 102 mm Hg Results No Known Results Summary Purpose eClinicalWorks Submission
[2018-04-16] MEDS ORDERED: GENTAMICIN 80MG/NS 100 ML 200 ML IV ONE (11:21)
[2018-04-16] MEDS ORDERED: CEFAZOLIN SOD 2 GM/D5W 50ML 50 ML IV ONE (11:21)
[2018-04-16] MEDS ORDERED: MIDAZOLAM HCL 2 MG/2 ML VIAL ONE (13:57)
[2018-04-16] MEDS ORDERED: FENTANYL CITRATE/PF 100MCG/2 ML INJ ONE ×2 (13:57→17:31)
[2018-04-16] MEDS ORDERED: VASOPRESSIN INJ 20 UNIT/ML VIAL INJ ONE (14:15)
[2018-04-16] MEDS ORDERED: BUPIVACAINE 0.5%/EPI 30 ML SDV INJ ONE (14:19)
[2018-04-16] MEDS ORDERED: HYDROMORPHONE 2MG/ML 2 MG/ML ML ONE ×2 (15:49→17:15)
[2018-04-16] MEDS ORDERED: ESTROGENS CONJUGATED VAGINAL CR 45 GM TUBE PV ONE (16:02)
[2018-04-16] MEDS ORDERED: ONDANSETRON HCL INJ 2MG/ML 2ML 2 MG/ML VIAL ONE (16:12)
[2018-04-16] MEDS ORDERED: SEVOFLURANE INHAL SOLN 250 ML PEN BTL ONE (16:12)
[2018-04-16] MEDS ORDERED: DEXAMETHASONE SOD PHOS INJ 4 MG/ML VIAL ONE (16:12)
[2018-04-16] MEDS ORDERED: SUCCINYLCHOLINE 200 MG/10 ML SYR ONE (16:12)
[2018-04-16] MEDS ORDERED: LIDOCAINE HCL 2% LOCAL INJ 5 ML SDV VIAL INJ ONE (16:12)
[2018-04-16] MEDS ORDERED: PROPOFOL IV EMULSION 10 MG/ML 20 ML VIAL ONE (16:12)
[2018-04-16] MEDS ORDERED: ACETAMINOPHEN 1000 MG/100 ML IV ONE (16:12)
[2018-04-16] MEDS ORDERED: ROCURONIUM BROMIDE 10 MG/ML 5ML VIAL ONE (16:12)
[2018-04-16] MEDS ORDERED: MORPHINE SULFATE INJ 4 MG/ML INJ 1ML ONE (17:03)
[2018-04-16] MEDS: LACTATED RINGER'S 1,000 ML IV SCH (17:26)
[2018-04-16] MEDS ORDERED: ACETAMINOPHEN 325 MG TAB PO PRN (17:30)
[2018-04-16] MEDS ORDERED: MORPHINE SULFATE 2 MG/ML SYR 1ML IV PRN (17:30)
[2018-04-16] MEDS ORDERED: SIMETHICONE 80 MG CHEW PO PRN (17:30)
[2018-04-16] MEDS ORDERED: BISACODYL 10 MG SUPP PR PRN (17:30)
[2018-04-16] MEDS ORDERED: KETOROLAC TROMETHAMINE 30 MG/ML VIAL IM PRN (17:30)
[2018-04-16] MEDS ORDERED: DOCUSATE SODIUM 100 MG CAP PO PRN (17:30)
[2018-04-16] MEDS ORDERED: DIPHENHYDRAMINE HCL 25 MG CAP PO PRN (17:30)
[2018-04-16] MEDS ORDERED: ATENOLOL 50 MG TAB PO PRN (17:30)
[2018-04-16] MEDS ORDERED: ONDANSETRON HCL INJ 2MG/ML 2ML 2 MG/ML VIAL IV PRN (17:30)
[2018-04-16] MEDS ORDERED: MORPHINE SULFATE INJ 10 MG/ML ONE (17:48)
--- OUTSIDE RECORDS SUMMARY | 2018-04-16 18:36 | XMS REPORT | Clinical Summary ---
Author Author [facility] [employer] [facility] [employer] Address Unknown Phone Unavailable Care Team Providers Care Film Projector Operator Name Role Phone Saulo Vazquez MD PCP [...] PATHOLOGY Routine 10/13/2017 REQUEST 9:00 AM CDT NM AN ELECTIVE Routine 10/13/[address] END[address] AIRWAY 8:12 [...] lead or foreign body identified. Cholecystectomy clips. [id number] Procedure Note Hm Interface, Radiology Results Incoming - 10/13/2017 11:39 AM CDT EXAMINATION: XR LUMBAR SPINE 1 VW CLINICAL HISTORY: Spinal cord simulator removal COMPARISON: Chest, thoracic, lumbar radiographs obtained on 09/29/2017 IMPRESSION: Interval removal of a spinal cord stimulator leads without retained lead or foreign body identified. Cholecystectomy clips. [id number] Performing Organization Address [facility] Phone Number [facility] [address] [place] [address] * OR [place] > I Hour (10/13/2017 [...] performing the procedure. [id number] Performing Organization Address [facility] Phone Number [facility] [address] [place] [address] * Surgical pathology request (10/13/2017 9:00 AM CDT) [facility] DEPARTMENT OF PATHOLOGY AND GENOMIC MEDICINE Surgical pathology report See link below for PDF Lab [facility] DEPARTMENT OF Report PATHOLOGY AND GENOMIC MEDICINE Result status This is Final Report to [facility] DEPARTMENT OF [id number] PATHOLOGY AND GENOMIC MEDICINE Performing Organization Address [facility] Phone Number [address] [place] [address] PATHOLOGY AND GENOMIC MEDICINE * hCG qualitative, urine screen (10/13/2017 6:10 AM CDT) hCG qualitative, urine Negative Negative [facility] DEPARTMENT OF Comment: PATHOLOGY AND The manufacturers stated GENOMIC MEDICINE sensitivity of HcG test for serum is >/=10 mIU/ml and urine is >/=20mIU/ml. LOT # [id number] EXP : 03/2019 Specimen Urine Performing Organization Address [facility] Phone Number [address] [place] [address] PATHOLOGY AND GENOMIC MEDICINE * Estimated GFR (10/09/2017 7:37 AM CDT) GFR Non Af Amer 77 mL/min/1.73 m2 [facility] DEPARTMENT OF PATHOLOGY AND GENOMIC MEDICINE GFR Af Amer >90 mL/min/1.73 m2 [facility] DEPARTMENT OF Comment: PATHOLOGY AND Chronic kidney [...] Americans. Specimen Plasma specimen Performing Organization Address [facility] Phone Number [address] [place] [address] PATHOLOGY [facility] * Type and screen (10/09/2017 7:37 AM CDT) ABO grouping O [facility] DEPARTMENT OF PATHOLOGY AND GENOMIC MEDICINE Rh type POS [facility] DEPARTMENT PATHOLOGY AND GENOMIC MEDICINE Antibody screen NEG [facility] DEPARTMENT OF PATHOLOGY AND GENOMIC [facility] Specimen Blood Performing Organization Address [facility] Phone Number [address] [place] [address] PATHOLOGY [facility] * Basic metabolic panel (10/09/2017 7:37 AM CDT) Sodium 139 135 - 148 mEq/L [facility] DEPARTMENT OF PATHOLOGY AND GENOMIC MEDICINE Potassium 3.5 3.5 - 5.0 mEq/L [facility] DEPARTMENT OF PATHOLOGY AND GENOMIC MEDICINE Chloride 98 98 - 112 mEq/L [facility] DEPARTMENT OF PATHOLOGY AND GENOMIC MEDICINE CO2 31 24 - 31 mEq/L [facility] DEPARTMENT OF PATHOLOGY AND GENOMIC MEDICINE Anion gap 10@ANIO 7 - 15 mEq/L [facility] DEPARTMENT OF PATHOLOGY AND GENOMIC MEDICINE BUN 15 6 - 20 mg/dL [facility] DEPARTMENT OF PATHOLOGY AND GENOMIC MEDICINE Creatinine 0.8 0.5 - 0.9 mg/dL [facility] DEPARTMENT OF PATHOLOGY AND GENOMIC MEDICINE Glucose 87 65 - 99 mg/dL [facility] DEPARTMENT OF PATHOLOGY AND GENOMIC MEDICINE Calcium 9.5 8.3 - 10.2 mg/dL [facility] DEPARTMENT OF PATHOLOGY AND [facility] Give Back MEDICINE Specimen Plasma specimen Performing Organization Address [facility] Phone Number [address] [place] [address] PATHOLOGY AND GENOMIC MEDICINE * XR Thoracic [...] Intraspinal stimulator as noted. 2. Diffuse osteopenia [id number] Procedure Note Interface, Radiology Results Incoming - [...] Intraspinal stimulator as noted. 2. Diffuse osteopenia [id number] Performing Organization Address City/State/Zipcode Phone Number [facility] [address] [place] [address] * XR Lumbar Spine 2 Or 3 [...] is present. IMPRESSION: Spinal stimulator as noted. [id number] Procedure Note Interface, Radiology Results Incoming - [...] is present. IMPRESSION: Spinal stimulator as noted. [id number] Performing Organization Address [facility] Phone Number [facility] [address] [place] [address] * XR Chest 2 Vw (09/29/2017 2:25 PM CDT) Narrative Performed At EXAMINATION[facility] CLINICAL [facility]:Z01.818 Encounter for other preprocedural examination, preop COMPARISON:February 19, 2007 FINDINGS: The heart size appears normal. The mediastinum is unremarkable. A intraspinal nerve stimulator is noted, its projects within the lower thoracic spinal canal. IMPRESSION: No acute cardiopulmonary abnormality is identified. [id number] Procedure Note Hm Interface, Radiology Results Incoming - 09/29/2017 3:55 PM CDT EXAMINATION: XR CHEST 2 VW CLINICAL HISTORY: Z01.818 Encounter for other preprocedural examination, preop COMPARISON: February 19, 2007 FINDINGS: The heart size appears normal. The mediastinum is unremarkable. A intraspinal nerve stimulator is noted, its projects within the lower thoracic spinal canal. IMPRESSION: No acute cardiopulmonary abnormality is identified. [id number] Performing Organization Address [facility] Phone Number [facility] [address] [place] [address] * Partial thromboplastin time, activated (09/29/2017 1:15 PM CDT) PTT 33.8 23.0 - 36.0 sec [facility] DEPARTMENT OF Comment: PATHOLOGY AND PTT therapeutic range for Why Not Give Back MEDICINE unfractionated heparin is 61.0-112.0 seconds which corresponds to Anti-Xa 0.3-0.7 U/ml. Specimen Blood Performing Organization Address [facility] Phone Number [facility] DEPARTMENT OF [address] [place] [address] [place] [address] PATHOLOGY AND GENOMIC MEDICINE * Prothrombin time with INR (09/29/2017 1:15 PM CDT) Prothrombin time 12.5 12.0 - 15.0 sec [facility] DEPARTMENT OF PATHOLOGY AND GENOMIC MEDICINE INR 0.9 [facility] DEPARTMENT OF Comment: PATHOLOGY AND The International Normalized GENOMIC MEDICINE Ratio (INR) is a therapeutic monitoring tool for patients who are stable on oral anticoagulant therapy. An INR of 2.0-3.0 is suggested for deep vein thrombosis/pulmonary embolism. Specimen Blood Performing Organization Address City/State/Zipcode Phone Number [facility] [place] [address] [place] [address] PATHOLOGY AND GENOMIC MEDICINE * CBC with platelet and differential (09/29/2017 1:15 PM CDT) WBC 5.88 4.50 - 11.00 k/uL [facility] DEPARTMENT OF PATHOLOGY AND GENOMIC MEDICINE RBC 4.24 4.20 - 5.50 m/uL [facility] DEPARTMENT OF PATHOLOGY AND GENOMIC MEDICINE HGB 11.7 (L) 12.0 - 16.0 g/dL [facility] DEPARTMENT OF PATHOLOGY AND GENOMIC MEDICINE HCT 37.6 37.0 - 47.0 % [facility] DEPARTMENT OF PATHOLOGY AND GENOMIC MEDICINE MCV 88.7 82.0 - 100.0 fL [facility] DEPARTMENT OF PATHOLOGY AND GENOMIC MEDICINE MCH 27.6 27.0 - 34.0 pg [facility] DEPARTMENT OF PATHOLOGY AND GENOMIC MEDICINE MCHC 31.1 31.0 - 37.0 g/dL [facility] DEPARTMENT OF PATHOLOGY AND GENOMIC MEDICINE RDW - SD 49.1 37.0 - 55.0 fL [facility] DEPARTMENT OF PATHOLOGY AND GENOMIC MEDICINE MPV 10.5 8.8 - 13.2 fL [facility] DEPARTMENT OF PATHOLOGY AND GENOMIC MEDICINE Platelet count 339 150 - 400 k/uL [facility] DEPARTMENT OF PATHOLOGY AND GENOMIC MEDICINE Nucleated RBC 0.00 /100 WBC [facility] DEPARTMENT OF PATHOLOGY AND GENOMIC MEDICINE Neutrophils 40.3 39.0 - 69.0 % [facility] DEPARTMENT OF PATHOLOGY AND GENOMIC MEDICINE Lymphocytes 39.3 25.0 - 45.0 % [facility] DEPARTMENT OF PATHOLOGY AND GENOMIC MEDICINE Monocytes 15.8 (H) 0.0 - 10.0 % [facility] DEPARTMENT OF PATHOLOGY AND GENOMIC MEDICINE Eosinophils 3.4 0.0 - 5.0 % [facility] DEPARTMENT OF PATHOLOGY AND GENOMIC MEDICINE Basophils 1.0 0.0 - 1.0 % [facility] DEPARTMENT OF PATHOLOGY AND GENOMIC MEDICINE Specimen Blood Performing Organization Address City/[facility]/Zipcode Phone Number [place] [phone] [place] [address] PATHOLOGY AND GENOMIC MEDICINE * ECG 12 lead (09/29/2017 1:13 PM CDT) Ventricular rate 61 [facility] Atrial rate 61 [facility] NM interval 122 [facility] QRSD interval 70 [facility] QT interval 384 [facility] QTC interval 386 [facility] P axis 1 66 [facility] QRS axis 1 58 [facility] T wave axis 43 [facility]USE EKG impression Normal sinus rhythm-Normal [facility] MUSE ECG-In automated comparison with ECG of 04-APR-2011 21:33,-No significant change was found- Performing Organization Address City/[facility] Phone Number [facility] [address] [place] [address] * Urinalysis, automated with microscopy (09/29/2017 11:25 AM CDT) Color, UA Straw [facility] DEPARTMENT OF PATHOLOGY AND GENOMIC MEDICINE Appearance, UA Clear [facility] DEPARTMENT OF PATHOLOGY AND GENOMIC MEDICINE Specific gravity, UA 1.004 1.001 - 1.035 [facility] DEPARTMENT OF PATHOLOGY AND GENOMIC MEDICINE pH, UA 5.0 5.0 - 8.5 [facility] DEPARTMENT OF PATHOLOGY AND GENOMIC MEDICINE Protein, UA Negative Negative [facility] DEPARTMENT OF PATHOLOGY AND GENOMIC MEDICINE Glucose, UA Negative Negative [facility] DEPARTMENT OF PATHOLOGY AND GENOMIC MEDICINE Ketones, UA Negative Negative [facility] DEPARTMENT OF PATHOLOGY AND GENOMIC MEDICINE Bilirubin, UA Negative Negative [facility] DEPARTMENT OF PATHOLOGY AND GENOMIC MEDICINE Blood, UA Negative Negative [facility] DEPARTMENT OF PATHOLOGY AND GENOMIC MEDICINE Nitrite, UA Negative Negative [facility] DEPARTMENT OF PATHOLOGY AND GENOMIC MEDICINE Urobilinogen, UA Negative <2.0 [facility] DEPARTMENT OF PATHOLOGY AND GENOMIC MEDICINE Leukocyte esterase, UA Negative Negative [facility] DEPARTMENT OF PATHOLOGY AND GENOMIC MEDICINE Epithelial cells, UA Many /HPF [facility] DEPARTMENT OF PATHOLOGY AND GENOMIC MEDICINE Round epithelial cells, Few 0 - 1 /HPF [facility] DEPARTMENT OF PATHOLOGY AND GENOMIC MEDICINE WBC, UA 0-5 0 - 4 /HPF [facility] DEPARTMENT OF PATHOLOGY AND GENOMIC MEDICINE RBC, UA 0-5 0 - 5 /HPF [facility] DEPARTMENT OF PATHOLOGY AND GENOMIC MEDICINE Bacteria, UA Few None seen [facility] DEPARTMENT OF PATHOLOGY AND GENOMIC MEDICINE Yeast, UA None seen [facility] DEPARTMENT OF PATHOLOGY AND GENOMIC MEDICINE Yeast with pseudohyphae, None seen [facility] DEPARTMENT OF UA PATHOLOGY AND GENOMIC MEDICINE Specimen Urine Performing Organization Address City/State/Zipcode Phone Number [facility] [address] [place] [address] PATHOLOGY AND GENOMIC MEDICINE after 04/15/2017 Insurance Payer Benefit Subscriber ID Type Phone Address Plan / Group [facility] xxxxxxxxxxx PPO [employer] Advance Directives Patient has advance care planning documents on file. For more information, jessica henley contact: Lance Morgan [address] [place] [address]
--- NOTE | 2018-04-16 18:43 | NUR ---
Received patient via stretcher. AAOX3 to time, person, place. Respirations even and unlabored. Oriented patient to room. Instructed to use call light for assistance. Report to be given to oncoming nurse of patient's status.
[2018-04-16 19:10] VITALS: BP 120/66
--- NOTE | 2018-04-16 19:10 | NUR ---
REPORT RECEIVED FROM OFF GOING NURSE, PT RESTING IN BED ALERT AND ORIENTED, NO DISTRESS NOTED, INDWELLING PHILIPPE NOTED AND PATENT, BAND AIDS TO SITES, NO COMPLICATIONS NOTED, MINIMAL DRY DRAINAGE NOTED TO MID INCISION WITH BAD AT, TO MONITOR, CALL LIGHT IN REACH, INSTRUCTED TO CALL WITH NEEDS, FAMILY AT BEDSIDE
[2018-04-16 20:19] VITALS: BP 120/66
--- NOTE | 2018-04-16 20:21 | Operative Report ---
DATE OF PROCEDURE: April 16, 2018 PREOPERATIVE DIAGNOSES 1. Pelvic pain. 2. Abnormal uterine bleeding. 3. Anemia. POSTOPERATIVE DIAGNOSES 1. Pelvic pain. 2. Abnormal uterine bleeding. 3. Anemia. 4. Small left ovarian cyst. TITLE OF PROCEDURES 1. Laparoscopically-assisted vaginal hysterectomy. 2. Bilateral salpingo-oophorectomy. USED CAR MANAGER: Dr. Kena Martinez ANESTHESIA: General with Dr. Paige. INDICATION FOR THE OPERATION: The patient is a 48-year-old, 4, para 3-0-1-3, with last menstrual period on March 28, 2018, status post tubal ligation in 2000 with abnormal uterine bleeding with benign endometrial biopsy. She also has lower abdominal pain and pelvic pain. She has not done well with medical therapy. It is not help really of her symptoms. She desires laparoscopically-assisted vaginal hysterectomy. She has been anemic with a hemoglobin under 10, approximately 9.2, possibly lower in the past due to her bleeding and she therefore wants to undergo the procedure. She was taken to the operating room at this time due to the bleeding, pain and anemia. She is also request bilateral salpingo-oophorectomy because she does not want to have any left over causes of pelvic pain. I explained to her the need for hormone therapy and she understand this and still would like to proceed with bilateral salpingo-oophorectomy in addition to the hysterectomy. FINDINGS AT SURGERY: The uterus was enlarged 8 to 10 weeks' size. Nodule in the right tube and left tube were normal, but status post tubal ligation. The right ovary was within normal limits. The left ovary had a small cyst. There were no adhesions noted. PROCEDURE: Patient was taken to the operating room and placed on the table in the supine position. General anesthesia was administered. Patient was then placed in the lithotomy position. The perineum was prepared and draped in the usual sterile manner as well as the abdomen. Pelvic exam revealed 8 to 10 weeks' size anteverted uterus. No adnexal masses were palpated. The Hernandez catheter was placed in the bladder for constant drainage. A weighted-speculum was placed in the posterior vaginal wall, then with the aid of tenaculum being placed on the cervix. A NAM manipulator was placed into the uterus. Then at this point, the pig furnace operator changed gloves and we proceeded with the laparoscopic portion of the procedure. A small incision was made just inferior to the umbilicus in the midline. The Veress needle was inserted through the incision into the peritoneal cavity and pneumoperitoneum was created by insufflation of 4 L of carbon dioxide gas under filling pressure of 8 to 10 mmHg. The Veress needle was removed, and the trocar was inserted through the incision into the peritoneal cavity. The laparoscope was placed with confirmation that the peritoneal cavity had been entered. A second trocar was placed in the left lower quadrant under direct visualization by laparoscopy and a third trocar was placed in the right lower quadrant under direct visualization by laparoscopy. The probe and LigaSure were placed and the contents of the abdomen and pelvis were visualized. There were no adhesions from her previous gallbladder surgery. There were no adhesions from her tubal ligation. At this point, attention was turned to the left tube and ovary. The left ovary was slightly enlarged with a small cyst and there was plenty of room between the tube and ovary and the pelvic sidewall and the infundibular pelvic ligament. This was grasped with LigaSure closed to the tube and ovary. Cautery was applied until the ligament was desiccated. It was cauterized twice and then cut, and then the mesosalpinx was cut after being clamped and cauterized and then the round ligament on the left was clamped and cauterized twice and then cut. There was good hemostasis in evidence and at this point, the uterus and tube and ovary became more mobile. Attention was turned to the right side. The right tube and ovary were grasped with a grasper and then the infundibulopelvic ligament on the right side was clamped with the LigaSure, coagulated twice, and then cut with good hemostasis in evidence and then the mesosalpinx on the right side was clamped, cauterized, and cut with LigaSure instrument and then the round ligament on the right side was cauterized, clamped, and cut and then the broad ligament on the each side was clamped, cauterized, and cut with the LigaSure instrument until we were just above the uterine vessels. At this point, it was felt that we were proceed vaginally and the pneumoperitoneum was removed and the instruments were left in place and covered by towels. At this point, we put the patient back in the lithotomy position and we grabbed the cervix with 2 single-tooth tenaculum and then dilute Pitressin was injected into the cervix and the cervix was circumscribed with a knife and the endopelvic fascia was advanced anteriorly, posteriorly, and laterally. We were not able to get into the cul-de-sac or anteriorly and so we grasped the cardinal ligament on each side, clamping, cutting and tying off with 0 Vicryl suture and tagging for later identification. At this point, we were then able to dissect more posteriorly and visualized the cul-de-sac and opened it, and we were then able to stitch the posterior cul-de-sac to the posterior vaginal cuff with a running lock stitch of 2-0 chromic for good hemostasis and then the uterosacral ligament on each side was clamped, cut, and tied off with 0 Vicryl suture and tagged for later identification. At this point, we dissected anteriorly. We were able to visualize the peritoneal reflexion and we opened the anterior peritoneum and then clamping from anterior to posterior peritoneum. The uterine vessels were clamped, cut, and tied off with 0 Vicryl suture. The second bite on each side was taken clamping, cutting, and tying off with 0 Vicryl suture and then the third bite on each side was taken clamping, cutting, and tying off with 0 Vicryl suture and at this point, the uterus was completely free and brought out. The uterus, tubes, and ovaries were sent to pathology for definitive diagnosis. At this point, there were some bleeders on the vaginal cuff. These were tied off with [id number] stitches of 0 Vicryl suture and then with minimal bleeding noted, we proceeded to close the vaginal cuff, incorporating the peritenoneum, closed using a running lock suture of 1 chromic suture and then the uterosacral ligament was tied into the vaginal cuff for support. There was good hemostasis in evidence of the vagina cuff. We irrigated and suctioned and then we re-installed our pneumoperitoneum. We changed gown and gloves and irrigated and suctioned and found a few small bleeders, which we coagulated with monopolar cautery. These were all on the vaginal cuff. There was good cessation of bleeding. We irrigated and suctioned once further finding and no further evidence of any bleeding. We proceeded to close. All the air and instruments were removed from the abdomen. The skin incisions were closed with interrupted inverted stitches of 4-0 Monocryl suture. The Hernandez catheter was draining clear urine at the end of the procedure. The counts were all correct. There were no complications noted. Estimated blood loss was 300 mL. The patient tolerated the procedure well and was transferred from the operating room to the recovery room in stable condition. Job#: [id number] DARSHAN
[2018-04-16] MEDS: MORPHINE SULFATE INJ 4 MG/ML INJ 1ML IV PRN (20:43)
[2018-04-16] MEDS: GENTAMICIN 120MG/NS 100ML 100 ML IV SCH (21:32)
[2018-04-16] MEDS ORDERED: CEFAZOLIN SOD 1 GM VIAL IV SCH (22:00)
[2018-04-16] MEDS: CEFAZOLIN SOD 2 GM/D5W 50ML 50 ML IV SCH (22:00)
[2018-04-16] MEDS: HYDROCODONE/APAP 10MG-325MG TAB PO PRN (23:44)
[2018-04-17] MEDS: LACTATED RINGER'S 1,000 ML IV SCH ×2 (00:06→10:30)
[2018-04-17 00:33] VITALS: BP 130/73
[2018-04-17 04:46] VITALS: BP 125/66
[2018-04-17] MEDS: CEFAZOLIN SOD 2 GM/D5W 50ML 50 ML IV SCH ×2 (04:47→13:17)
[2018-04-17] MEDS: GENTAMICIN 120MG/NS 100ML 100 ML IV SCH ×2 (06:00→14:00)
[2018-04-17] MEDS: MORPHINE SULFATE INJ 4 MG/ML INJ 1ML IV PRN (06:19)
--- NOTE | 2018-04-17 06:21 | NUR ---
PT RESTING IN BED ALERT AND ORIENTED, NO DISTRESS NOTED, INDWELLING PHILIPPE REMOVED WITH BALLOON INTACT, NO COMPLICATIONS NOTED, PT EDUCATED TO INFORM STAFF OF NEED TO VOID, IV INFUSING PER ORDER, DRESSING TO ABD C/D/I, CALL LIGHT IN REACH, INSTRUCTED TO CALL WITH NEEDS
[2018-04-17 06:27] LABS: BASOPHILS % 0.2 % (0.0-1.0); HEMATOCRIT 30.1 % (34.2-44.1); HEMOGLOBIN 9.8 g/dL (12.0-16.0); LYMPHOCYTES # (AUTO) 1.1 (1.0-3.2); LYMPHOCYTES % 11.6 % (18.0-39.1); MEAN CORPUSCULAR HEMOGLOBIN 26.7 pg (28-32); MEAN CORPUSCULAR HGB CONC 32.6 g/dL (31-35); MONOCYTES # (AUTO) 0.8 (0.2-0.8); MONOCYTES % 8.7 % (4.4-11.3); NEUTROPHILS # (AUTO) 7.3 (2.1-6.9); NEUTROPHILS % 79.2 % (38.7-80.0); PLATELET COUNT 260 x10e3/uL (140-360); RED BLOOD COUNT 3.67 x10e6/uL (3.6-5.1); RED CELL DISTRIBUTION WIDTH 20.7 % (11.7-14.4)
[2018-04-17 07:00] LABS: ANION GAP 13.4 mmol/L (8-16); BLOOD UREA NITROGEN 6 mg/dL (7-26); BUN/CREATININE RATIO 9 (6-25); CALCIUM 8.4 mg/dL (8.4-10.2); CARBON DIOXIDE 24 mmol/L (22-29); CHLORIDE 106 mmol/L (98-107); EST GLOMERULAR FILTRATION RATE > 60 ML/MIN (60-); GLUCOSE 95 mg/dL (74-118); POTASSIUM 4.4 mmol/L (3.5-5.1); SODIUM 139 mmol/L (136-145)
[2018-04-17 08:10] VITALS: BP 114/63
[2018-04-17 08:53] VITALS: BP 114/63
--- NOTE | 2018-04-17 08:53 | NUR ---
ASSESSMENT COMPLETE NO DISTRESS NOTED, UPDATED ON POC VOICED UNDERSTANDING, DENIES PAIN AT THIS TIME, 3 TROCHAR SITES TO ABDOMEN C/D/I, MINIMAL BLEEDING TO PAD NOTED, MD AWARE, NO OTHER CO VOICED CALL LIGHT IN REACH WILL CONTINUE TO MONITOR
[2018-04-17] MEDS ORDERED: GABAPENTIN 400 MG CAP PO SCH (09:00)
[2018-04-17] MEDS ORDERED: CHOLECALCIFEROL 1,000 UNIT TAB PO SCH (09:00)
[2018-04-17] MEDS ORDERED: PANTOPRAZOLE SOD 40 MG TABEC PO SCH (09:00)
[2018-04-17] MEDS ORDERED: FUROSEMIDE 40 MG TAB PO SCH (09:00)
[2018-04-17] MEDS ORDERED: FOLIC ACID 1 MG TAB PO SCH (09:00)
[2018-04-17] MEDS ORDERED: FUROSEMIDE 40 MG TAB PO PRN (09:15)
--- NOTE | 2018-04-17 09:30 | NUR ---
PER DR FOWLER, IF MEDICATION NOT AVAILABLE PT MAY TAKE OWN MEDS. TOOK OWN PAIN (MORPHINE 30MGS ER TAB ) PHARMACY IS AWARE.
[2018-04-17] MEDS ORDERED: DIPHENHYDRAMINE HCL 25 MG CAP PO PRN (11:30)
[2018-04-17] MEDS ORDERED: MORPHINE SULFATE 15MG TAB CR PO PRN (12:00)
[2018-04-17] MEDS: HYDROCODONE/APAP 10MG-325MG TAB PO PRN (13:17)
[2018-04-17 13:38] VITALS: BP 128/62
--- NOTE | 2018-04-17 15:36 | NUR ---
Patient lives: at home with and children Admit/Transfer: Admit Hospital/ER visits since last admit: None POA/Emergency contact: Kingston Willis [phone] Current/Previous Home Health: N/A PCP/Follow-up Care: Saulo Fermin Current/Previous DME: None Medications (referring to index hospitalization or the first time you were in the hospital) a. Were changes made in your medications when you were in the hospital on [date of index hospitalization]? Yes ?No Not sure Explain: Note: If no or not sure, please skip to question d b. Did you understand the changes? Yes No Explain: c. Were you able to obtain your new medications right away? Yes No n/a SNF only Explain: d. Were you able to take your medications like the doctor wanted you to? Yes No Explain: e. Did the hospital give you an accurate, easy to understand list of medications when you left? Yes No n/a SNF only Explain: Scale of 1-10 how comfortable does patient feel with disease management in outpatient settin Other Services: Employment Status: Areas of Concerns: Patient is not sure how she will feel when her returns home. At this time she is unsure if she would be able to care for herself at that because she doesn't know how fast she will recover. Referral Needs: Education Needs: IMM/BLUE given and signed (if applicable): Goal for discharge: To return home
[2018-04-17 16:13] VITALS: BP 98/53
[2018-04-21] MEDS ORDERED: ERGOCALCIFEROL 50,000 UNIT CAP PO SCH (09:00)
== END 2018-04-17 18:47 | disposition home or self-care (01) ==
LOC: OR 10:52 → MED/SURG 18:26
PROVIDERS: ADMIT Obstetrics & Gynecology; ATTEND Obstetrics & Gynecology
DX: N83.202 Unspecified ovarian cyst, left side (principal); N93.8 Other specified abnormal uterine and vaginal bleeding; D64.9 Anemia, unspecified; Z01.810 Encounter for preprocedural cardiovascular examination; Z01.812 Encounter for preprocedural laboratory examination; Z01.811 Encounter for preprocedural respiratory examination; R10.2 Pelvic and perineal pain; E04.9 Nontoxic goiter, unspecified; N26.1 Atrophy of kidney (terminal); K44.9 Diaphragmatic hernia without obstruction or gangrene
CPT/HCPCS: 36415 ×2; 58552; 71046; 80048; 80053; 81003; 84702; 85025 ×2; 86850; 86900; 88307; 93005; G0378 ×2; J0131; J0690 ×2; J1100; J1170; J1580 ×3; J1885; J2001; J2250; J2270 ×3; J2405; J2704; J7121 ×2; S0164